=== PATIENT | female | born 1945 | race African-American/Black ===

== ENCOUNTER 2022-04-24 11:25 | Emergency (ER) | payer MEDICARE, MEDICAID ==
[~2022-04-24] VITALS: Ht 165.1 cm; Wt 69.0 kg
[~2022-04-24 11:25] MED LIST: AMLO10TA80 PO; CODE118S2 PO; CYAN-50 PO; DUONEB3 ML INH; FERR-63 PO; FLUT1DIS3 INH; FOLI-43 PO; GABA100C PO; LORA10TA7 PO; MONT10TA21 PO; OMEP20CA14 PO; PSEU60TA98 PO
[2022-04-24] MEDS ORDERED: IBUPROFEN 600MG TABLET PO ONE (11:45)
[2022-04-24 12:58] LABS: HEMATOCRIT. 27.5 % (36.0-48.0); HEMOGLOBIN. 8.7 g/dL (12.0-16.0); MEAN CORPUSCULAR HEMOGLOBIN 24.3 pg (28.0-32.0); MEAN CORPUSCULAR VOLUME 76.9 fL (81.0-99.0); MEAN PLATELET VOLUME 6.3 fl (7.4-10.4); PLATELET 490 x1000/uL (130-400); RED BLOOD CELL COUNT 3.57 mill/uL (4.2-5.4); RED CELL DISTRIBUTION WIDTH 17.8 % (11.6-14.6)
[2022-04-24 13:08] LABS: CHLORIDE 99 mEq/L (98-107)
[2022-04-24 13:59] LABS: PLATELET ESTIMATE INCREASED
[2022-04-24] MEDS ORDERED: ACETAMINOPHEN WITH CODEINE 120-12MG/5ML UDC PO SCH (15:45)
[2022-04-24] MEDS ORDERED: CLONIDINE 0.2MG TABLET PO ONE (17:00)
[2022-04-24] MEDS ORDERED: PREDNISONE 20MG TABLET PO NR (17:13)
[2022-04-24] MEDS ORDERED: ONDANSETRON 4MG ODT PO ONE (17:30)
[2022-04-24] MEDS ORDERED: CLONIDINE 0.1MG TABLET PO ONE (17:30)
[2022-04-24] MEDS ORDERED: P50 MT (18:49)
[2022-04-24] MEDS ORDERED: ONDA4TAB11 PO (18:49)
[2022-04-24 20:00] VITALS: BP 153/114
== END 2022-04-24 23:27 | disposition home or self-care (01) ==
LOC: ER 11:25
DX: J44.1 Chronic obstructive pulmonary disease with (acute) exacerbation (principal); Z20.822 Contact with and (suspected) exposure to COVID-19; I10 Essential (primary) hypertension
CPT/HCPCS: 36415; 71045; 80053; 83880; 84484; 85025; 87426; 87804; 93005; 99285; J7512; Q0162

== ENCOUNTER 2022-04-26 12:14 | Inpatient (IN) | payer OTHER, MEDICAID ==
[~2022-04-26] VITALS: Ht 167.6 cm; Wt 49.0 kg
[2022-04-26] MEDS: IPRATROPIUM/ALBUTEROL 0.5-3(2.5)MG/3ML NEB HHN SCH ×2 (01:12→20:06)
[~2022-04-26 12:14] MED LIST changes: +ONDA4TAB11 PO; +P50 MT
[2022-04-26] MEDS ORDERED: MORPHINE SULFATE 4 MG/ML CPJ (NOT FOR IM USE) IV STA (13:09)
[2022-04-26] MEDS ORDERED: ONDANSETRON HCL 4MG/2ML INJ IV STA (13:09)
[2022-04-26 13:24] LABS: HEMATOCRIT. 28.2 % (36.0-48.0); HEMOGLOBIN. 8.9 g/dL (12.0-16.0); MEAN CORPUSCULAR HEMOGLOBIN 23.9 pg (28.0-32.0); MEAN CORPUSCULAR VOLUME 75.8 fL (81.0-99.0); MEAN PLATELET VOLUME 6.7 fl (7.4-10.4); PLATELET 533 x1000/uL (130-400); RED BLOOD CELL COUNT 3.72 mill/uL (4.2-5.4); RED CELL DISTRIBUTION WIDTH 17.7 % (11.6-14.6)
[2022-04-26 13:30] LABS: CHLORIDE 93 mEq/L (98-107)
[2022-04-26] MEDS ORDERED: LEVOFLOXACIN 750MG PREMIX 150 ML IV ONE (13:45)
[2022-04-26 13:49] LABS: PLATELET ESTIMATE INCREASED
[2022-04-26] MEDS ORDERED: CLONIDINE 0.1MG TABLET PO PRN (19:30)
[2022-04-26] MEDS ORDERED: NALOXONE HCL 0.4MG/ML VIAL IV PRN (19:30)
[2022-04-26] MEDS ORDERED: ONDANSETRON HCL 4MG/2ML INJ IV PRN (19:30)
[2022-04-26] MEDS ORDERED: ACETAMINOPHEN 325MG TABLET PO PRN (19:30)
[2022-04-26] MEDS: METHYLPREDNISOLONE SOD SUCC 40 MG/ML VIAL IV SCH (22:11)
[2022-04-26] MEDS: HYDROCODONE/ACETAMINOPHEN 10/325MG TABLET PO PRN (22:31)
[2022-04-27 00:11] LABS: CREATINE KINASE 34 IU/L (26-192); CREATINE KINASE MB FRACTION < 1.0 ng/mL (0.5-3.6)
[2022-04-27 00:50] LABS: *AMPHETAMINES SCREEN URINE NEGATIVE (NEGATIVE); *BARBITURATES SCREEN URINE NEGATIVE (NEGATIVE); *BENZODIAZEPINES SCREEN URINE NEGATIVE (NEGATIVE); *COCAINE SCREEN URINE NEGATIVE (NEGATIVE); CANNABINOID URINE SCREEN NEGATIVE (NEGATIVE); METHADONE URINE SCREEN NEGATIVE (NEGATIVE); OPIATES URINE SCREEN PRESUMTIVE POSITIVE (NEGATIVE); PHENCYCLIDINE URINE SCREEN NEGATIVE (NEGATIVE)
[2022-04-27 01:26] LABS: BG BASE EXCESS -0.2 mmol/L (-2.0-2.0); BG CARBOXYHEMOGLOBIN 0.1 % (0.5-1.5); BG DEOXYHEMOGLOBIN 5.3 % (0.0-5.0); BG FRACTION INSPIRED OXYGEN 28; BG HCO3 ACT 24.5 mmol/L (22.0-26.0); BG METHEMOGLOBIN 0.2 % (0.0-1.5); BG OXYGEN SATURATION 94.7 % (92.0-98.5); BG OXYHEMOGLOBIN 94.4 % (94.0-97.0); BG PH 7.405 (7.350-7.450); BG PO2 76.7 mmHg (75.0-100.0); BG SAMPLE SITE LEFT RADIAL; BG TOTAL HEMOGLOBIN 9.1 g/dL (12.0-18.0); BG VENT MODE NASAL CANNULA
[2022-04-27] MEDS: IPRATROPIUM/ALBUTEROL 0.5-3(2.5)MG/3ML NEB HHN SCH ×5 (03:04→22:21)
[2022-04-27] MEDS: METHYLPREDNISOLONE SOD SUCC 40 MG/ML VIAL IV SCH ×3 (05:48→21:05)
[2022-04-27 05:57] LABS: HEMATOCRIT. 26.4 % (36.0-48.0); HEMOGLOBIN. 8.5 g/dL (12.0-16.0); MEAN CORPUSCULAR HEMOGLOBIN 24.6 pg (28.0-32.0); MEAN CORPUSCULAR VOLUME 76.2 fL (81.0-99.0); MEAN PLATELET VOLUME 6.5 fl (7.4-10.4); PLATELET 468 x1000/uL (130-400); RED BLOOD CELL COUNT 3.47 mill/uL (4.2-5.4); RED CELL DISTRIBUTION WIDTH 17.5 % (11.6-14.6)
[2022-04-27 06:13] LABS: CHLORIDE 94 mEq/L (98-107); CREATINE KINASE 36 IU/L (26-192); CREATINE KINASE MB FRACTION < 1.0 ng/mL (0.5-3.6)
[2022-04-27 06:42] VITALS: BP 128/71
[2022-04-27 08:00] VITALS: BP 116/67
[2022-04-27] MEDS ORDERED: SODIUM CHLORIDE 0.9% 1,000 ML IV SCH (08:15)
[2022-04-27] MEDS: PANTOPRAZOLE SODIUM 40 MG/VIAL IV SCH (10:11)
[2022-04-27] MEDS ORDERED: INFLUENZA VACCINE 05/PF 0.5 ML SYRINGE IM ONE (11:00)
[2022-04-27] MEDS ORDERED: PNEUMOCOCCAL 23-VAL P-SAC VAC 0.5 ML IM ONE (11:00)
[2022-04-27] MEDS: LEVOFLOXACIN 500MG PREMIX 100 ML IV SCH (11:42)
[2022-04-27 12:00] VITALS: BP 125/76
[2022-04-27 16:00] VITALS: BP 135/81
[2022-04-27 18:01] LABS: PLATELET ESTIMATE INCREASED
[2022-04-27 20:00] VITALS: BP 143/78
[2022-04-27] MEDS: HYDROMORPHONE HCL/PF 2MG/ML CPJ IV PRN (22:41)
[2022-04-28] VITALS: BP 140/69
[2022-04-28] MEDS: IPRATROPIUM/ALBUTEROL 0.5-3(2.5)MG/3ML NEB HHN SCH ×6 (02:41→21:44)
[2022-04-28] MEDS: METHYLPREDNISOLONE SOD SUCC 40 MG/ML VIAL IV SCH ×3 (04:42→20:52)
[2022-04-28] MEDS: HYDROMORPHONE HCL/PF 2MG/ML CPJ IV PRN ×2 (04:51→17:07)
[2022-04-28 08:00] VITALS: BP 128/77
[2022-04-28] MEDS: PANTOPRAZOLE SODIUM 40 MG/VIAL IV SCH (08:49)
[2022-04-28 12:00] VITALS: BP 145/85
[2022-04-28] MEDS: LEVOFLOXACIN 500MG PREMIX 100 ML IV SCH (12:57)
[2022-04-28 16:00] VITALS: BP 141/75
[2022-04-28 17:43] LABS: HEMATOCRIT. 25.3 % (36.0-48.0); HEMOGLOBIN. 8.3 g/dL (12.0-16.0); MEAN CORPUSCULAR VOLUME 75.8 fL (81.0-99.0); MEAN PLATELET VOLUME 6.3 fl (7.4-10.4); PLATELET 456 x1000/uL (130-400); RED BLOOD CELL COUNT 3.34 mill/uL (4.2-5.4); RED CELL DISTRIBUTION WIDTH 17.5 % (11.6-14.6)
[2022-04-28 18:05] LABS: CHLORIDE 94 mEq/L (98-107)
[2022-04-28 19:49] LABS: PLATELET ESTIMATE INCREASED
[2022-04-28 20:00] VITALS: BP 126/72
[2022-04-28] MEDS: GUAIFENESIN 200MG/10ML SUGAR FREE UDC PO PRN (21:37)
[2022-04-29] VITALS (7 sets, daily range): BP systolic 113–136; BP diastolic 58–88
[2022-04-29] MEDS: IPRATROPIUM/ALBUTEROL 0.5-3(2.5)MG/3ML NEB HHN SCH ×6 (00:17→20:44)
[2022-04-29] MEDS: HYDROMORPHONE HCL/PF 2MG/ML CPJ IV PRN ×3 (01:18→09:16)
[2022-04-29] MEDS: GUAIFENESIN 200MG/10ML SUGAR FREE UDC PO PRN ×2 (04:57→09:15)
[2022-04-29] MEDS: METHYLPREDNISOLONE SOD SUCC 40 MG/ML VIAL IV SCH ×3 (04:57→21:04)
[2022-04-29] MEDS: PANTOPRAZOLE SODIUM 40 MG/VIAL IV SCH (09:15)
[2022-04-29] MEDS: LEVOFLOXACIN 500MG PREMIX 100 ML IV SCH ×2 (13:30→13:31)
[2022-04-29] MEDS: HYDROCODONE/ACETAMINOPHEN 10/325MG TABLET PO PRN ×2 (13:31→21:03)
[2022-04-29] MEDS: PROMETHAZINE/DEXTROMETHORPHAN 6.25-15MG/5ML BOTTLE 120ML PO PRN (15:50)
[2022-04-29] MEDS: GUAIFENESIN 600MG ER TABLET PO SCH (21:03)
[2022-04-29] MEDS: BENZONATATE 100MG CAPSULE PO PRN (22:32)
[2022-04-30] VITALS: BP 139/77
[2022-04-30] MEDS: IPRATROPIUM/ALBUTEROL 0.5-3(2.5)MG/3ML NEB HHN SCH ×6 (00:28→20:38)
[2022-04-30] MEDS: HYDROMORPHONE HCL/PF 2MG/ML CPJ IV PRN (02:21)
[2022-04-30] MEDS: METHYLPREDNISOLONE SOD SUCC 40 MG/ML VIAL IV SCH ×3 (02:22→21:03)
[2022-04-30] MEDS: PROMETHAZINE/DEXTROMETHORPHAN 6.25-15MG/5ML BOTTLE 120ML PO PRN (02:22)
[2022-04-30] MEDS: HYDROCODONE/ACETAMINOPHEN 10/325MG TABLET PO PRN ×2 (05:40→18:15)
[2022-04-30 08:00] VITALS: BP 134/64
[2022-04-30] MEDS: GUAIFENESIN 600MG ER TABLET PO SCH ×2 (09:32→21:03)
[2022-04-30] MEDS: PANTOPRAZOLE SODIUM 40 MG/VIAL IV SCH (09:32)
[2022-04-30 12:00] VITALS: BP 129/77
[2022-04-30] MEDS: LEVOFLOXACIN 500MG PREMIX 100 ML IV SCH (12:48)
[2022-04-30] MEDS: BENZONATATE 100MG CAPSULE PO PRN (18:14)
[2022-04-30 20:00] VITALS: BP 128/90
[2022-05-01] VITALS: BP 142/86
[2022-05-01] MEDS: DILTIAZEM HCL 30MG TABLET PO SCH ×3 (00:41→11:00)
[2022-05-01] MEDS: IPRATROPIUM/ALBUTEROL 0.5-3(2.5)MG/3ML NEB HHN SCH ×4 (00:45→12:41)
[2022-05-01 04:00] VITALS: BP 131/69
[2022-05-01] MEDS: METHYLPREDNISOLONE SOD SUCC 40 MG/ML VIAL IV SCH ×2 (05:47→11:00)
[2022-05-01 08:00] VITALS: BP 140/74
[2022-05-01] MEDS: PANTOPRAZOLE SODIUM 40 MG/VIAL IV SCH (08:39)
[2022-05-01] MEDS: HYDROCODONE/ACETAMINOPHEN 10/325MG TABLET PO PRN (08:40)
[2022-05-01] MEDS: GUAIFENESIN 600MG ER TABLET PO SCH (08:40)
[2022-05-01] MEDS ORDERED: LEVOFLOXACIN 500MG TABLET PO SCH (11:00)
[2022-05-01] MEDS: PROMETHAZINE/DEXTROMETHORPHAN 6.25-15MG/5ML BOTTLE 120ML PO PRN (11:17)
[2022-05-01 13:28] LABS: HEMATOCRIT. 25.9 % (36.0-48.0); HEMOGLOBIN. 8.2 g/dL (12.0-16.0); MEAN CORPUSCULAR HEMOGLOBIN 24.4 pg (28.0-32.0); MEAN CORPUSCULAR VOLUME 76.6 fL (81.0-99.0); MEAN PLATELET VOLUME 6.7 fl (7.4-10.4); PLATELET 468 x1000/uL (130-400); RED BLOOD CELL COUNT 3.38 mill/uL (4.2-5.4); RED CELL DISTRIBUTION WIDTH 17.7 % (11.6-14.6)
[2022-05-01 13:38] VITALS: BP 132/72
[2022-05-01 13:48] LABS: CHLORIDE 95 mEq/L (98-107)
[2022-05-01 23:13] LABS: PLATELET ESTIMATE INCREASED
== END 2022-05-01 16:39 | disposition home health service (06) | DRG 190 ==
LOC: ER 12:14 → MICUSO 16:07 → EDBEDREQ 16:09 → 7EST 04-27 05:26
PROVIDERS: ADMIT Internal Medicine; ATTEND Internal Medicine
DX: J44.0 Chronic obstructive pulmonary disease with (acute) lower respiratory infection (principal); J18.9 Pneumonia, unspecified organism; E87.1 Hypo-osmolality and hyponatremia; J44.1 Chronic obstructive pulmonary disease with (acute) exacerbation; I10 Essential (primary) hypertension; Z88.0 Allergy status to penicillin; Z88.8 Allergy status to other drugs, medicaments and biological substances; Z79.899 Other long term (current) drug therapy; Z87.891 Personal history of nicotine dependence
CPT/HCPCS: 36415; 36600; 71045; 71250; 74176; 80048; 80053; 80305; 82375; 82550; 82553; 82805; 83880; 84295; 84484; 85025; 85379; 87070; 87426; 87804; 93005; 93306; 93970; 94640; 99291; C9113; J1170; J1956; J2270; J2405; J2920; J7030

== ENCOUNTER 2024-01-09 19:50 | Inpatient (IN) | payer MEDICARE, MEDICAID ==
[~2024-01-09] VITALS: Ht 167.6 cm; Wt 55.8 kg
[~2024-01-09 19:50] MED LIST changes: +MONT-46 PO; -MONT10TA21 PO; +ONDA-239 PO; -ONDA4TAB11 PO
[2024-01-09] MEDS ORDERED: METHYLPREDNISOLONE SOD SUCC 125MG/2ML (ACT-O-VIAL) IV STA (20:43)
[2024-01-09] MEDS: ALBUTEROL (0.083%) 2.5MG/3ML NEB HHN SCH (21:12)
[2024-01-09] MEDS: IPRATROPIUM BROMIDE (0.02%) 0.5MG/2.5ML NEB HHN STA (21:13)
[2024-01-09 21:14] VITALS: PULSE 90; RESP 20; O2SAT 100
[2024-01-09 21:42] VITALS: PULSE 100; RESP 20; O2SAT 100
[2024-01-09 22:06] LABS: BASOPHILS % 0.7 % (0.0-2.0); LYMPHOCYTES % 33.9 % (20.0-50.0); MEAN CORPUSCULAR HEMOGLOBIN 18.7 pg (28.0-32.0); MEAN CORPUSCULAR HGB CONC 30.1 g/dL (31.0-37.0); MEAN CORPUSCULAR VOLUME 62.1 fL (81.0-99.0); MONOCYTES % 11.7 % (2.0-8.0); NEUTROPHILS % 52.7 % (40.0-76.0); PLATELET 442 x1000/uL (130-400); RED BLOOD CELL COUNT 3.58 mill/uL (4.2-5.4); RED CELL DISTRIBUTION WIDTH 20.4 % (11.6-14.6); WHITE BLOOD COUNT 4.9 x1000/uL (4.5-11.0)
[2024-01-09 22:12] LABS: CHLORIDE 96 mEq/L (98-107); DIFFERENTIAL COMMENT 1; POTASSIUM 3.4 mEq/L (3.5-5.1); SODIUM 128 mEq/L (136-145)
[2024-01-09 22:13] LABS: CALCIUM 8.9 mg/dL (8.7-10.4); CARBON DIOXIDE 28 mEq/L (21-32)
[2024-01-09 22:16] LABS: HEMATOCRIT. 22.2 % (36.0-48.0); HEMOGLOBIN. 6.7 g/dL (12.0-16.0)
[2024-01-09 22:18] LABS: ADD RBC MORPHOLOGY YES; CREATININE 0.6 mg/dL (0.6-1.0); GLUCOSE 86 mg/dL (70-105); UREA NITROGEN BLOOD 8 mg/dL (9-23)
[2024-01-09 22:19] LABS: TROPONIN I HIGH SENSITIVITY 7 ng/L (3.0-34)
[2024-01-09 22:45] LABS: PLATELET ESTIMATE INCREASED
[2024-01-09 22:46] LABS: ANISOCYTOSIS 2+; HYPOCHROMASIA 3+; MICROCYTOSIS 3+; OVALOCYTES 1+
[2024-01-10] VITALS (10 sets, daily range): BP systolic 120–180; BP diastolic 68–103; PULSE 77–95; RESP 12–23; TEMP 36.14–36.89184; O2SAT 97–100
[2024-01-10 00:11] LABS: TROPONIN I HIGH SENSITIVITY 8 ng/L (3.0-34)
[2024-01-10] MEDS: MAGNESIUM 2 G PREMIX 50 ML IV NR ×2 (01:14→04:43)
[2024-01-10] MEDS: METHYLPREDNISOLONE SOD SUCC 125MG/2ML (ACT-O-VIAL) IV NR (01:15)
[2024-01-10] MEDS: POTASSIUM CHLORIDE 20MEQ TABLET SR PO NR (01:15)
[2024-01-10] MEDS: MAGNESIUM 2 G PREMIX 50 ML IV ONE (01:25)
[2024-01-10] MEDS ORDERED: ONDANSETRON HCL 4MG/2ML INJ IV PRN (02:30)
[2024-01-10] MEDS ORDERED: MAGNESIUM/ALUMINUM HYDROXIDE/SIMETHICONE 30ML UDC PO PRN (02:30)
[2024-01-10] MEDS ORDERED: ACETAMINOPHEN 325MG TABLET PO PRN ×2 (02:30)
[2024-01-10] MEDS ORDERED: IPRATROPIUM/ALBUTEROL 0.5-3(2.5)MG/3ML NEB HHN PRN (02:30)
[2024-01-10] MEDS ORDERED: DOCUSATE SODIUM 100MG CAPSULE PO PRN (02:30)
[2024-01-10] MEDS ORDERED: HYDROCODONE/ACETAMINOPHEN 5/325MG TABLET PO PRN (02:30)
[2024-01-10] MEDS ORDERED: NA PHOS,M-B/NA PHOS,DI-BA ENEMA 118ML PR PRN (02:30)
[2024-01-10 03:20] LABS: HEMATOCRIT. 22.8 % (36.0-48.0); MEAN CORPUSCULAR HGB CONC 28.5 g/dL (31.0-37.0); MEAN CORPUSCULAR VOLUME 63.1 fL (81.0-99.0); MEAN PLATELET VOLUME 8.2 fl (7.4-10.4); PLATELET 416 x1000/uL (130-400); RED BLOOD CELL COUNT 3.62 mill/uL (4.2-5.4); RED CELL DISTRIBUTION WIDTH 21.1 % (11.6-14.6); WHITE BLOOD COUNT 3.6 x1000/uL (4.5-11.0)
[2024-01-10 03:29] LABS: CALCIUM 9.1 mg/dL (8.7-10.4); CARBON DIOXIDE 27 mEq/L (21-32); CHLORIDE 99 mEq/L (98-107); POTASSIUM 3.7 mEq/L (3.5-5.1); SODIUM 131 mEq/L (136-145)
[2024-01-10 03:30] LABS: DIFFERENTIAL COMMENT 1
[2024-01-10 03:33] LABS: HEMOGLOBIN. 6.5 g/dL (12.0-16.0)
[2024-01-10 03:34] LABS: CREATININE 0.7 mg/dL (0.6-1.0); GLUCOSE 83 mg/dL (70-105); IRON 16 ug/dL (50-170)
[2024-01-10 03:35] LABS: LDL CHOLESTEROL 112 mg/dL (5-100); TRIGLYCERIDE 100 mg/dL (0-150); TROPONIN I HIGH SENSITIVITY 9 ng/L (3.0-34); UREA NITROGEN BLOOD 7 mg/dL (9-23)
[2024-01-10 03:36] LABS: ALANINE AMINOTRANSFERASE < 7 IU/L (10-49); ALBUMIN 4.4 g/dL (3.2-4.8); ASPARTATE AMINOTRANSFERASE 17 IU/L (<34); CHOLESTEROL 179 mg/dL (<200); HDL CHOLESTEROL 57 mg/dL (>65); PHOSPHORUS 4.6 mg/dL (2.5-4.9)
[2024-01-10 03:37] LABS: BILIRUBIN TOTAL 0.3 mg/dL (0.1-1.0); PROTEIN TOTAL 7.3 g/dL (6.0-8.3); TOTAL IRON BINDING CAPACITY 410 ug/dl (250-425)
[2024-01-10 03:38] LABS: T4 FREE 1.36 ng/dL (0.89-1.76)
[2024-01-10 03:39] LABS: THYROID STIMULATING HORMONE 1.24 uIU/mL (0.55-4.78)
[2024-01-10 03:42] LABS: BILIRUBIN DIRECT < 0.1 mg/dL (<=3.0)
[2024-01-10] MEDS: METHYLPREDNISOLONE SOD SUCC 125MG/2ML (ACT-O-VIAL) IV SCH (03:47)
[2024-01-10] MEDS: GUAIFENESIN 200MG/10ML SUGAR FREE UDC PO PRN (03:47)
[2024-01-10] MEDS: SODIUM CHLORIDE 0.9% 1,000 ML IV SCH (03:53)
[2024-01-10 04:40] LABS: FERRITIN 5 ng/mL (10-291)
[2024-01-10 04:41] LABS: FOLIC ACID (FOLATE) SERUM 11.91 ng/mL (>5.38); VITAMIN B12 SERUM 615 pg/mL (211-911)
[2024-01-10 04:47] LABS: HYPOCHROMASIA 1+; MICROCYTOSIS 1+; PLATELET ESTIMATE NORMAL
[2024-01-10 05:57] LABS: CLARITY URINE CLEAR (CLEAR); COLOR URINE YELLOW (YELLOW); GLUCOSE URINE NEGATIVE (NEGATIVE); KETONES URINE NEGATIVE (NEGATIVE); LEUKOCYTE ESTERASE URINE TRACE (NEGATIVE); NITRITE URINE NEGATIVE (NEGATIVE); OCCULT BLOOD URINE NEGATIVE (NEGATIVE); PH URINE 6.5 (4.5-8.0); PROTEIN URINE NEGATIVE (NEGATIVE); SPECIFIC GRAVITY URINE 1.008 (1.005-1.030); UROBILINOGEN URINE 0.2 E.U./dL (0.2-1.0)
[2024-01-10 06:11] LABS: *AMPHETAMINES SCREEN URINE NEGATIVE (NEGATIVE); *BARBITURATES SCREEN URINE NEGATIVE (NEGATIVE); *BENZODIAZEPINES SCREEN URINE NEGATIVE (NEGATIVE); *COCAINE SCREEN URINE NEGATIVE (NEGATIVE); METHADONE URINE SCREEN NEGATIVE (NEGATIVE)
[2024-01-10 06:13] LABS: CANNABINOID URINE SCREEN PRESUMPTIVE POSITIVE (NEGATIVE); ECSTASY MDMA SCREEN URINE NEGATIVE (NEGATIVE); OPIATES URINE SCREEN NEGATIVE (NEGATIVE); PHENCYCLIDINE URINE SCREEN NEGATIVE (NEGATIVE)
[2024-01-10] MEDS: AZITHROMYCIN 500MG/250ML 250 ML IV SCH (06:13)
[2024-01-10] MEDS: PANTOPRAZOLE 40MG DR TABLET PO SCH (06:14)
[2024-01-10 06:55] LABS: BACTERIA URINE TRACE; RBC URINE NONE SEEN /hpf (0-2); SQUAMOUS EPITHELIAL CELL URINE 1+ /lpf (RARE/1+)
[2024-01-10] MEDS: FOLIC ACID 1MG TABLET PO SCH (08:46)
[2024-01-10] MEDS: THIAMINE HCL 100MG TABLET PO SCH (08:46)
[2024-01-10] MEDS: FERROUS SULFATE 325MG TABLET PO SCH ×2 (08:46→17:43)
[2024-01-10] MEDS ORDERED: AMLODIPINE 10MG TABLET PO SCH (09:00)
[2024-01-10 09:42] LABS: BG BASE EXCESS -3.1 mmol/L (-2.0-3.0); BG CARBOXYHEMOGLOBIN 0.7 % (0.5-1.5); BG DEOXYHEMOGLOBIN 19.1 % (0.0-5.0); BG FRACTION INSPIRED OXYGEN 21; BG HCO3 ACT 22.1 mmol/L (21.0-28.0); BG METHEMOGLOBIN 0.3 % (0.5-1.5); BG OXYGEN SATURATION 80.7 % (94.0-98.0); BG OXYHEMOGLOBIN 79.9 % (94.0-98.0); BG PCO2 40.3 mmHg (32.0-45.0); BG PH 7.357 (7.350-7.450); BG PO2 45.3 mmHg (83.0-108.0); BG SAMPLE SITE RIGHT RADIAL; BG TOTAL HEMOGLOBIN 9.3 g/dL (12.0-16.0); BG VENT MODE ROOM AIR
[2024-01-10 13:05] LABS: HEMATOCRIT 23.6 % (36.0-48.0)
[2024-01-10] MEDS ORDERED: NALOXONE HCL 0.4MG/ML VIAL IV PRN (14:15)
[2024-01-10] MEDS: METHYLPREDNISOLONE SOD SUCC 40MG/ML (ACT-O-VIAL) IV SCH (14:36)
[2024-01-10 16:25] LABS: TROPONIN I HIGH SENSITIVITY 4 ng/L (3.0-34)
[2024-01-10] MEDS: CLONIDINE 0.1MG TABLET PO PRN (17:46)
[2024-01-10] MEDS: IPRATROPIUM/ALBUTEROL 0.5-3(2.5)MG/3ML NEB HHN SCH (21:18)
[2024-01-11] VITALS (9 sets, daily range): BP systolic 133–151; BP diastolic 70–90; PULSE 56–104; RESP 14–20; TEMP 36.28068–37.00296; O2SAT 95–100
[2024-01-11] MEDS: ACETYLCYSTEINE 200MG/ML 20% VIAL 4ML INH SCH (00:42)
[2024-01-11 06:53] LABS: CARBON DIOXIDE 24 mEq/L (21-32); CHLORIDE 102 mEq/L (98-107); POTASSIUM 4.3 mEq/L (3.5-5.1); SODIUM 132 mEq/L (136-145)
[2024-01-11 06:59] LABS: CREATININE 0.5 mg/dL (0.6-1.0); GLUCOSE 128 mg/dL (70-105); UREA NITROGEN BLOOD 11 mg/dL (9-23)
[2024-01-11 07:25] LABS: BASOPHILS % 0.1 % (0.0-2.0); HEMATOCRIT. 23.4 % (36.0-48.0); HEMOGLOBIN. 7.1 g/dL (12.0-16.0); LYMPHOCYTES % 7.6 % (20.0-50.0); MEAN CORPUSCULAR HEMOGLOBIN 19.8 pg (28.0-32.0); MEAN CORPUSCULAR HGB CONC 30.3 g/dL (31.0-37.0); MEAN CORPUSCULAR VOLUME 65.2 fL (81.0-99.0); MEAN PLATELET VOLUME 8.2 fl (7.4-10.4); MONOCYTES % 4.6 % (2.0-8.0); NEUTROPHILS % 87.7 % (40.0-76.0); PLATELET 369 x1000/uL (130-400); RED BLOOD CELL COUNT 3.59 mill/uL (4.2-5.4); RED CELL DISTRIBUTION WIDTH 23.8 % (11.6-14.6); WHITE BLOOD COUNT 3.3 x1000/uL (4.5-11.0)
[2024-01-11 07:52] LABS: DIFFERENTIAL COMMENT 1
[2024-01-11 07:53] LABS: ADD RBC MORPHOLOGY YES
[2024-01-11] MEDS ORDERED: AZIT250T12 MT (10:07)
[2024-01-11] MEDS ORDERED: PRED10TA MT (10:07)
[2024-01-11 16:58] LABS: ANISOCYTOSIS 1+; HYPOCHROMASIA 1+; MICROCYTOSIS 1+; PLATELET ESTIMATE NORMAL
== END 2024-01-11 23:17 | disposition home or self-care (01) | DRG 189 ==
LOC: ER 19:50 → EDBEDREQ 22:51 → 3WST 23:44 → EDBEDREQ 23:48
PROVIDERS: ADMIT Internal Medicine; ATTEND Internal Medicine
PROC: 30233N1 Transfusion of Nonautologous Red Blood Cells into Peripheral Vein, Percutaneous Approach (ICD-10-PCS; principal; 2024-01-10)
DX: J96.21 Acute and chronic respiratory failure with hypoxia (principal); J44.1 Chronic obstructive pulmonary disease with (acute) exacerbation; E87.1 Hypo-osmolality and hyponatremia; J84.9 Interstitial pulmonary disease, unspecified; M94.0 Chondrocostal junction syndrome [Tietze]; E78.5 Hyperlipidemia, unspecified; R91.8 Other nonspecific abnormal finding of lung field; R79.89 Other specified abnormal findings of blood chemistry; D50.9 Iron deficiency anemia, unspecified; E87.6 Hypokalemia; E83.42 Hypomagnesemia; R58 Hemorrhage, not elsewhere classified; I10 Essential (primary) hypertension; Z99.81 Dependence on supplemental oxygen; Z91.018 Allergy to other foods; Z88.0 Allergy status to penicillin; Z87.891 Personal history of nicotine dependence
CPT/HCPCS: 36415; 36600; 71045; 71275; 80048; 80061; 80076; 80305; 81003; 82375; 82607; 82728; 82746; 82805; 83036; 83540; 83550; 83735; 83880; 84100; 84439; 84443; 84484; 85014; 85018; 85025; 85044; 85379; 86850; 86900; 86920; 93005; 93306; 93971; 94640; 99291; J0456; J2919; J2920; J3475; J7030; J7608; P9016